=== PATIENT | female | born 1955 | race Caucasian/White ===

== ENCOUNTER → 2021-04-18 | Outpatient (CLI) | payer MEDICARE, BC ==
[~2021-04-18] MED LIST: CLOP75TA15 PO; LEVO100T PO; LOSA25TA96 PO; MULT-1085 PO; ROSU5TAB PO
== END | disposition home or self-care (01) ==
LOC: 64 CT 09:56
PROVIDERS: ATTEND Surgery
DX: Z01.818 Encounter for other preprocedural examination (principal); R91.8 Other nonspecific abnormal finding of lung field; N26.1 Atrophy of kidney (terminal)
CPT/HCPCS: 71250

== ENCOUNTER 2021-04-25 08:26 | Inpatient (IN) | payer MEDICARE, BC ==
[2021-04-20 12:39] LABS: BASOPHILS % (AUTO) 0.5 % (0-1); EOSINOPHILS % (AUTO) 0.6 % (0-6); LYMPHOCYTES # (AUTO) 1.4 X10'3 (1.1-4.8); LYMPHOCYTES % (AUTO) 22.5 % (21-51); MEAN CORPUSCULAR HEMOGLOBIN 27.7 PG (27.0-31.0); MEAN CORPUSCULAR HGB CONC 33.3 g/dL (33.0-36.5); MEAN CORPUSCULAR VOLUME 83.2 FL (78-98); MEAN PLATELET VOLUME 8.1 FL (7.4-10.4); MONOCYTES # (AUTO) 0.4 X10'3 (0-0.9); MONOCYTES % (AUTO) 6.3 % (2-12); NEUTROPHILS # (AUTO) 4.4 X10'3 (1.8-7.7); NEUTROPHILS % (AUTO) 70.1 % (42-75); PRE OP HEMATOCRIT 37.4 % (35.0-45.0); PRE OP HEMOGLOBIN 12.4 g/dL (12.0-16.0); PRE OP PLATELET COUNT 341 X10'3 (140-440); RED BLOOD COUNT 4.49 X10'6 (4.20-5.60); RED CELL DISTRIBUTION WIDTH 14.2 % (11.5-14.5)
[2021-04-20 12:51] LABS: PRE OP INR 1.1 INR; PRE OP PROTIME 10.9 SECONDS (9.0-12.0)
[2021-04-20 13:16] LABS: ALBUMIN 4.2 G/DL (3.4-5.0); ALBUMIN/GLOBULIN RATIO 1.1 (1.1-1.5); ALKALINE PHOSPHATASE 93 IU/L (46-116); BLOOD UREA NITROGEN 20 MG/DL (7-18); BUN/CREATININE RATIO 23.3 (6.6-38.0); CALCIUM 9.5 MG/DL (8.5-10.1); CHLORIDE 104 MMOL/L (99-107); CREATININE 0.86 MG/DL (0.40-0.90); PRE OP ALT 27 U/L (30-65); PRE OP ANION GAP 9 (8-16); PRE OP AST 15 U/L (10-37); PRE OP BILIRUB, TOTAL 0.3 MG/DL (0.0-1.0); PRE OP GLUCOSE 101 MG/DL (70-104); PRE OP POTASSIUM 4.3 MMOL/L (3.4-5.1); PRE OP SODIUM 140 MMOL/L (135-145); TOTAL PROTEIN 7.9 G/DL (6.4-8.2); eGFR 66 ML/MIN
[~2021-04-25] VITALS: Ht 165.1 cm; Wt 97.2 kg
[2021-04-25] VITALS (17 sets, daily range): BP systolic 80–150; BP diastolic 43–82
[~2021-04-25 08:26] MED LIST changes: +clindamycin-Cleocin 900mg/D5W 50 ML IV ONE; +famotidine 20mg tablet PO ONE; +ringers solution, lacted 1,000 ML IV SCH
[2021-04-25] MEDS ORDERED: NORepinephrine 8mg/ 250ml NS 250 ML IV SCH (12:15)
[2021-04-25] MEDS ORDERED: BUPIVAcaine 0.5% inj/PF 30 ML ONE (12:45)
[2021-04-25] MEDS ORDERED: diazepam 5mg tablet PO ONE (12:50)
[2021-04-25] MEDS ORDERED: midazolam 1 mg/ML 2ml injection ONE (13:13)
[2021-04-25] MEDS ORDERED: LIDOcaine 2% (20mg/ml) 5ml vial ONE (13:13)
[2021-04-25] MEDS ORDERED: fentaNYL /PF 50mcg/ml 5ml ampule ONE (13:13)
[2021-04-25] MEDS ORDERED: propofol inj 20 ML IV ONE (13:13)
[2021-04-25] MEDS ORDERED: rocuronium 10mg/ml inj IV ONE (13:15)
[2021-04-25] MEDS ORDERED: CISatracurium **Bolus** 2 mg/ml inj IV ONE (14:24)
[2021-04-25] MEDS ORDERED: INDOCYANINE GREEN 25 MG/10 ML VIAL IV ONE (15:06)
[2021-04-25] MEDS ORDERED: albumin (Human) 5% 250ml 250 ML IV ONE ×2 (15:17→18:10)
[2021-04-25] MEDS ORDERED: BUPIVACAINE liposomal/PF 13.3 MG/ML vial IM ONE ×2 (16:04→16:06)
[2021-04-25] MEDS ORDERED: BUPIVAcaine/PF 2.5mg/ml (0.25%) 10ml vial ONE (16:05)
[2021-04-25] MEDS ORDERED: acetaminophen 1,000mg/100ml IV 100 ML IV ONE (16:42)
[2021-04-25] MEDS ORDERED: ondansetron/PF 4mg/2ml inj IV PRN ×2 (17:10→17:25)
[2021-04-25] MEDS ORDERED: naloxone 0.4 mg/ml inj IV PRN (17:10)
[2021-04-25] MEDS ORDERED: metoclopramide 5 mg/ml inj IV PRN (17:10)
[2021-04-25] MEDS ORDERED: HYDROcodone/acetaminophen 10/325mg tab PO PRN (17:10)
[2021-04-25] MEDS ORDERED: morphine 2 MG/ML inj. syringe IV PRN ×2 (17:10→17:25)
[2021-04-25] MEDS ORDERED: morphine 4 MG/ML inj SYRINge IV PRN ×2 (17:10→17:25)
[2021-04-25] MEDS ORDERED: CADD PCA waste documentation MC PRN (17:10)
[2021-04-25] MEDS ORDERED: albuterol 2.5 MG/3 ML nebule NEB PRN (17:10)
[2021-04-25] MEDS ORDERED: ringers solution, lacted 1,000 ML IV SCH (17:25)
[2021-04-25] MEDS ORDERED: proCHLORperazine 10 MG/2 ml inj IV PRN (17:25)
[2021-04-25 17:29] LABS: ABG BASE EXCESS -5.2 mmol/L (-2.0-2.0); ABG HCO3 20.8 mmol/L (22.0-26.0); ABG OXYGEN SATURATION 98.4 % (94-97); ABG PCO2 (T) 41.3 mmHg (32.0-45.0); ABG PO2 (T) 146.8 mmHg (75.0-100.0); FCOHb 0.3 % (0.0-3.9); FLOW 10 L/min; FMetHb 0.3 % (0.0-1.5); FO2Hb 97.8 % (94-97); PATIENT TEMPERATURE 36.3; TOTAL HEMOGLOBIN 11.1 G/dl (12.0-16.0)
--- NOTE | 2021-04-25 17:35 | NUR ---
Received from OR via HOSPITAL BED, accompanied by Anesthesiologist DR. BUENO and report given by Anesthesiolgist. ARTERIAL LINE BLOOD GAS OBTAINED AND CHEST XRAY. 20G PIV TO LEFT HAND, RIGHT INTRAJUGULAR CENTRAL LINE. VSS. PATIENT DENIES PAIN. URINE CATHETER IN PLACE. CHEST TUBE TO RIGHT SIDE ABDOMEN WITH SANGENOUS DRAINAGE IN TOTAL OF 20 IN CHAMBER. 10L MASK. WILL CONTINUE TO MONITOR.
[2021-04-25] MEDS ORDERED: morphine 4 MG/ML inj SYRINge ONE (17:41)
[2021-04-25] MEDS ORDERED: ketorolac tromethamine 15mg/ml inj. IV ONE (18:10)
--- NOTE | 2021-04-25 18:45 | NUR ---
REPORT GIVEN TO JUNE. PATIENT TO GO TO [id number].
--- NOTE | 2021-04-25 18:45 | NUR ---
PATIENT TAKEN WILL ALL BELONGINGS AND REPORT GIVEN AT BEDSIDE WELL WITH ALTAGRACIA PRIMARY NURSE.
[2021-04-25] MEDS: gabapentin 300mg capsule PO SCH (20:00)
[2021-04-25] MEDS: clindamycin 600mg/D5W 50ml 50 ML IV SCH (22:12)
[2021-04-25] MEDS: potassium Cl 20mEq in D5-NS 1,000 ML IV SCH (22:15)
[2021-04-26] MEDS ORDERED: PEG 400/HYPROMELLOSE/GLYCERIN 15ml bottle EACHEYE PRN (01:10)
[2021-04-26 02:00] VITALS: BP 129/66
[2021-04-26] MEDS: clindamycin 600mg/D5W 50ml 50 ML IV SCH ×4 (03:15→20:47)
[2021-04-26] MEDS: potassium Cl 20mEq in D5-NS 1,000 ML IV SCH ×2 (05:40→20:48)
[2021-04-26 06:00] VITALS: BP 138/69
[2021-04-26 06:04] LABS: BASOPHILS % (AUTO) 0.1 % (0-1); EOSINOPHILS % (AUTO) 0 % (0-6); HEMATOCRIT 30.1 % (35.0-45.0); HEMOGLOBIN 10.2 g/dl (12.0-16.0); LYMPHOCYTES # (AUTO) 0.4 X10'3 (1.1-4.8); LYMPHOCYTES % (AUTO) 3.4 % (21-51); MEAN CORPUSCULAR HEMOGLOBIN 28.1 PG (27.0-31.0); MEAN CORPUSCULAR HGB CONC 33.9 g/dL (33.0-36.5); MEAN CORPUSCULAR VOLUME 82.8 FL (78-98); MEAN PLATELET VOLUME 8.5 FL (7.4-10.4); MONOCYTES # (AUTO) 1.1 X10'3 (0-0.9); MONOCYTES % (AUTO) 8.8 % (2-12); NEUTROPHILS # (AUTO) 10.7 X10'3 (1.8-7.7); NEUTROPHILS % (AUTO) 87.7 % (42-75); PLATELET COUNT 252 X10'3 (140-440); RED BLOOD COUNT 3.63 X10'6 (4.20-5.60); RED CELL DISTRIBUTION WIDTH 14.1 % (11.5-14.5); WHITE BLOOD COUNT 12.2 X10'3 (4.5-11.0)
[2021-04-26 06:41] LABS: ALANINE AMINOTRANSFERASE 20 U/L (12-78); ALBUMIN 3.5 G/DL (3.4-5.0); ALBUMIN/GLOBULIN RATIO 1.2 (1.1-1.5); ALKALINE PHOSPHATASE 61 IU/L (46-116); ANION GAP 11 (8-16); ASPARTATE AMINO TRANSFERASE 13 U/L (10-37); BILIRUBIN,TOTAL 0.4 MG/DL (0.1-1.0); BLOOD UREA NITROGEN 16 MG/DL (7-18); BUN/CREATININE RATIO 15.7 (6.6-38.0); CALCIUM 8.2 MG/DL (8.5-10.1); CHLORIDE 107 MMOL/L (99-107); CREATININE 1.02 MG/DL (0.40-0.90); GLUCOSE 162 MG/DL (70-104); MAGNESIUM 1.8 MG/DL (1.5-2.4); PHOSPHORUS 3.2 MG/DL (2.3-4.5); POTASSIUM 4.2 MMOL/L (3.5-5.1); SODIUM 142 MMOL/L (135-145); TOTAL CARBON DIOXIDE 23.9 MMOL/L (24-32); TOTAL PROTEIN 6.5 G/DL (6.4-8.2); eGFR 54 ML/MIN
[2021-04-26] MEDS: gabapentin 300mg capsule PO SCH ×2 (08:00→20:00)
[2021-04-26] MEDS: multivitamins, therapeutics tablet PO SCH (08:00)
[2021-04-26] MEDS: levoTHYROXINE 100mcg tablet PO SCH (08:00)
[2021-04-26 11:00] VITALS: BP 126/92
[2021-04-26 15:00] VITALS: BP 121/65
[2021-04-26 18:00] VITALS: BP 150/68
[2021-04-26] MEDS: HYDROcodone/acetaminophen 10/325mg tab PO PRN (18:31)
--- NOTE | 2021-04-26 18:43 | NUR ---
Patient in room PCU 3014. I have received report from Kyung ALAN and had the opportunity to ask questions and assume patient care.
[2021-04-26 22:00] VITALS: BP 149/79
[2021-04-27] MEDS: HYDROcodone/acetaminophen 10/325mg tab PO PRN ×2 (00:45→11:35)
[2021-04-27 02:00] VITALS: BP 151/70
[2021-04-27] MEDS: clindamycin 600mg/D5W 50ml 50 ML IV SCH ×4 (02:22→19:43)
[2021-04-27 06:00] VITALS: BP 166/89
--- NOTE | 2021-04-27 06:05 | NUR ---
Patient in room PCU 3014. I have received report from Brisa ALAN and had the opportunity to ask questions and assume patient care.
--- NOTE | 2021-04-27 06:10 | NUR ---
Problems reprioritized. Patient report given, questions answered & plan of care reviewed with Narinder ALAN.
[2021-04-27 06:27] LABS: ALANINE AMINOTRANSFERASE 19 U/L (12-78); ALBUMIN/GLOBULIN RATIO 0.8 (1.1-1.5); ALKALINE PHOSPHATASE 58 IU/L (46-116); ANION GAP 6 (8-16); ASPARTATE AMINO TRANSFERASE 9 U/L (10-37); BILIRUBIN,TOTAL 0.4 MG/DL (0.1-1.0); BLOOD UREA NITROGEN 15 MG/DL (7-18); BUN/CREATININE RATIO 19.2 (6.6-38.0); CALCIUM 7.9 MG/DL (8.5-10.1); CHLORIDE 108 MMOL/L (99-107); CREATININE 0.78 MG/DL (0.40-0.90); GLUCOSE 137 MG/DL (70-104); PHOSPHORUS 2.3 MG/DL (2.3-4.5); POTASSIUM 3.9 MMOL/L (3.5-5.1); SODIUM 140 MMOL/L (135-145); TOTAL CARBON DIOXIDE 25.8 MMOL/L (24-32); TOTAL PROTEIN 6.6 G/DL (6.4-8.2); eGFR 74 ML/MIN
[2021-04-27 06:37] LABS: BASOPHILS % (AUTO) 0.3 % (0-1); EOSINOPHILS % (AUTO) 0.4 % (0-6); HEMATOCRIT 29.6 % (35.0-45.0); HEMOGLOBIN 9.8 g/dl (12.0-16.0); LYMPHOCYTES # (AUTO) 1.2 X10'3 (1.1-4.8); LYMPHOCYTES % (AUTO) 9.4 % (21-51); MEAN CORPUSCULAR HGB CONC 33.2 g/dL (33.0-36.5); MEAN CORPUSCULAR VOLUME 84.2 FL (78-98); MEAN PLATELET VOLUME 8.6 FL (7.4-10.4); MONOCYTES # (AUTO) 1.9 X10'3 (0-0.9); MONOCYTES % (AUTO) 15.2 % (2-12); NEUTROPHILS # (AUTO) 9.3 X10'3 (1.8-7.7); NEUTROPHILS % (AUTO) 74.7 % (42-75); PLATELET COUNT 223 X10'3 (140-440); RED BLOOD COUNT 3.51 X10'6 (4.20-5.60); RED CELL DISTRIBUTION WIDTH 14.9 % (11.5-14.5); WHITE BLOOD COUNT 12.4 X10'3 (4.5-11.0)
[2021-04-27] MEDS: potassium Cl 20mEq in D5-NS 1,000 ML IV SCH ×3 (06:40→22:07)
[2021-04-27] MEDS: levoTHYROXINE 100mcg tablet PO SCH (07:16)
[2021-04-27 07:22] LABS: PLATELET ESTIMATE NORMAL; TOTAL CELLS COUNTED 100
[2021-04-27] MEDS: gabapentin 300mg capsule PO SCH (08:00)
[2021-04-27 11:00] VITALS: BP 146/68
[2021-04-27] MEDS: multivitamins, therapeutics tablet PO SCH (11:42)
[2021-04-27 18:00] VITALS: BP 143/62
--- NOTE | 2021-04-27 18:15 | NUR ---
Problems reprioritized. Patient report given, questions answered & plan of care reviewed with Melinda ALAN.
[2021-04-27] MEDS: acetaminophen 325mg tablet PO PRN (18:26)
[2021-04-27 22:00] VITALS: BP 97/37
[2021-04-28] MEDS: acetaminophen 325mg tablet PO PRN ×4 (01:07→19:57)
[2021-04-28] MEDS: clindamycin 600mg/D5W 50ml 50 ML IV SCH ×4 (01:08→19:56)
[2021-04-28 02:00] VITALS: BP 147/74
[2021-04-28 06:00] VITALS: BP 152/78
[2021-04-28 06:07] LABS: BASOPHILS % (AUTO) 0.3 % (0-1); EOSINOPHILS # (AUTO) 0.2 X10'3 (0-0.9); EOSINOPHILS % (AUTO) 1.8 % (0-6); HEMATOCRIT 29.9 % (35.0-45.0); HEMOGLOBIN 10.1 g/dl (12.0-16.0); LYMPHOCYTES # (AUTO) 1.3 X10'3 (1.1-4.8); LYMPHOCYTES % (AUTO) 12.8 % (21-51); MEAN CORPUSCULAR HEMOGLOBIN 28.3 PG (27.0-31.0); MEAN CORPUSCULAR HGB CONC 33.8 g/dL (33.0-36.5); MEAN CORPUSCULAR VOLUME 83.8 FL (78-98); MEAN PLATELET VOLUME 8.4 FL (7.4-10.4); MONOCYTES # (AUTO) 1.4 X10'3 (0-0.9); MONOCYTES % (AUTO) 13.7 % (2-12); NEUTROPHILS # (AUTO) 7.4 X10'3 (1.8-7.7); NEUTROPHILS % (AUTO) 71.4 % (42-75); PLATELET COUNT 231 X10'3 (140-440); RED BLOOD COUNT 3.57 X10'6 (4.20-5.60); RED CELL DISTRIBUTION WIDTH 14.7 % (11.5-14.5); WHITE BLOOD COUNT 10.4 X10'3 (4.5-11.0)
[2021-04-28 06:42] LABS: ALANINE AMINOTRANSFERASE 21 U/L (12-78); ALBUMIN/GLOBULIN RATIO 0.9 (1.1-1.5); ALKALINE PHOSPHATASE 73 IU/L (46-116); ANION GAP 11 (8-16); ASPARTATE AMINO TRANSFERASE 19 U/L (10-37); BILIRUBIN,TOTAL 0.5 MG/DL (0.1-1.0); BLOOD UREA NITROGEN 12 MG/DL (7-18); BUN/CREATININE RATIO 16.4 (6.6-38.0); CALCIUM 8.2 MG/DL (8.5-10.1); CHLORIDE 106 MMOL/L (99-107); CREATININE 0.73 MG/DL (0.40-0.90); GLUCOSE 117 MG/DL (70-104); MAGNESIUM 2.1 MG/DL (1.5-2.4); PHOSPHORUS 2.8 MG/DL (2.3-4.5); POTASSIUM 4.3 MMOL/L (3.5-5.1); SODIUM 141 MMOL/L (135-145); TOTAL CARBON DIOXIDE 23.7 MMOL/L (24-32); TOTAL PROTEIN 6.3 G/DL (6.4-8.2); eGFR 80 ML/MIN
[2021-04-28] MEDS: levoTHYROXINE 100mcg tablet PO SCH (07:59)
[2021-04-28] MEDS: multivitamins, therapeutics tablet PO SCH (07:59)
--- NOTE | 2021-04-28 08:20 | NUR ---
Floated to [facility] report given to Birgit around 8am.
[2021-04-28] MEDS: potassium Cl 20mEq in D5-NS 1,000 ML IV SCH (12:23)
--- NOTE | 2021-04-28 18:16 | NUR ---
Patient refused blood glucose checked.
[2021-04-29 02:00] VITALS: BP 140/81
[2021-04-29] MEDS: clindamycin 600mg/D5W 50ml 50 ML IV SCH ×3 (02:00→14:00)
[2021-04-29] MEDS: acetaminophen 325mg tablet PO PRN ×2 (03:29→10:00)
[2021-04-29 05:54] LABS: BASOPHILS % (AUTO) 0.5 % (0-1); EOSINOPHILS # (AUTO) 0.2 X10'3 (0-0.9); HEMATOCRIT 30.4 % (35.0-45.0); HEMOGLOBIN 10.4 g/dl (12.0-16.0); LYMPHOCYTES # (AUTO) 1.4 X10'3 (1.1-4.8); LYMPHOCYTES % (AUTO) 18.7 % (21-51); MEAN CORPUSCULAR HEMOGLOBIN 28.4 PG (27.0-31.0); MEAN CORPUSCULAR HGB CONC 34.2 g/dL (33.0-36.5); MEAN CORPUSCULAR VOLUME 83.1 FL (78-98); MEAN PLATELET VOLUME 8.2 FL (7.4-10.4); MONOCYTES # (AUTO) 0.8 X10'3 (0-0.9); MONOCYTES % (AUTO) 11.3 % (2-12); NEUTROPHILS # (AUTO) 4.9 X10'3 (1.8-7.7); NEUTROPHILS % (AUTO) 66.5 % (42-75); PLATELET COUNT 270 X10'3 (140-440); RED BLOOD COUNT 3.66 X10'6 (4.20-5.60); RED CELL DISTRIBUTION WIDTH 14.4 % (11.5-14.5); WHITE BLOOD COUNT 7.4 X10'3 (4.5-11.0)
[2021-04-29 06:37] LABS: ALANINE AMINOTRANSFERASE 54 U/L (12-78); ALBUMIN/GLOBULIN RATIO 0.9 (1.1-1.5); ALKALINE PHOSPHATASE 92 IU/L (46-116); ANION GAP 12 (8-16); ASPARTATE AMINO TRANSFERASE 35 U/L (10-37); BILIRUBIN,TOTAL 0.6 MG/DL (0.1-1.0); BLOOD UREA NITROGEN 13 MG/DL (7-18); BUN/CREATININE RATIO 16.7 (6.6-38.0); CALCIUM 8.6 MG/DL (8.5-10.1); CHLORIDE 107 MMOL/L (99-107); CREATININE 0.78 MG/DL (0.40-0.90); GLUCOSE 115 MG/DL (70-104); MAGNESIUM 2.2 MG/DL (1.5-2.4); PHOSPHORUS 3.6 MG/DL (2.3-4.5); POTASSIUM 3.9 MMOL/L (3.5-5.1); SODIUM 143 MMOL/L (135-145); TOTAL CARBON DIOXIDE 24.4 MMOL/L (24-32); TOTAL PROTEIN 6.2 G/DL (6.4-8.2); eGFR 74 ML/MIN
[2021-04-29] MEDS: levoTHYROXINE 100mcg tablet PO SCH (08:27)
[2021-04-29] MEDS: multivitamins, therapeutics tablet PO SCH (08:27)
[2021-04-29] MEDS ORDERED: multivitamins, therapeutics tablet PO SCH (08:31)
[2021-04-29] MEDS ORDERED: levoTHYROXINE 100mcg tablet PO SCH (08:31)
--- NOTE | 2021-04-29 10:40 | NUR ---
Patient in room PCU 3014. I have received report from WAQAS Grewal and had the opportunity to ask questions and assume patient care.
--- NOTE | 2021-04-29 14:57 | NUR ---
last dose of antibiotic not administered d/t patient discharge. peripheral access DC'd
== END 2021-04-29 16:57 | disposition home or self-care (01) | DRG 165 ==
LOC: PAS IN 08:26 → UNDOADMIN 08:26 → PAS IN 17:09 → PCU 3S 19:00 → PAS IN 19:00
PROVIDERS: ADMIT Surgery; ATTEND Surgery
PROC: 07B74ZZ Excision of Thorax Lymphatic, Percutaneous Endoscopic Approach (ICD-10-PCS; 2021-04-25)
PROC: 8E0W4CZ Robotic Assisted Procedure of Trunk Region, Percutaneous Endoscopic Approach (ICD-10-PCS; 2021-04-25)
PROC: 0W9940Z Drainage of Right Pleural Cavity with Drainage Device, Percutaneous Endoscopic Approach (ICD-10-PCS; 2021-04-25)
PROC: 0BBC4ZZ Excision of Right Upper Lung Lobe, Percutaneous Endoscopic Approach (ICD-10-PCS; principal; 2021-04-25 13:25)
DX: C34.11 Malignant neoplasm of upper lobe, right bronchus or lung (principal); Z87.891 Personal history of nicotine dependence
CPT/HCPCS: 36415; 36600; 71045; 71046; 80053; 82803; 82948; 83735; 84100; 84443; 85007; 85018; 85025; 85610; 85730; 86885; 86900; 86901; 86920; 87081; 88305; 88307; 93005; 93306; 94760; 97116; 97161; 97530; A4618; A6258; A6449; A7000; A7048; C1758; C9250; C9290; G0378; J0131; J1885; J2250; J2270; J2704; J3010; J3480; J3490; J7030; J7040; J7120; P9045; S0020; U0003; U0005

== ENCOUNTER 2022-06-02 10:17 | Outpatient (CLI) | payer MEDICARE, BC ==
[~2022-06-02 10:17] MED LIST changes: -clindamycin-Cleocin 900mg/D5W 50 ML IV ONE; -famotidine 20mg tablet PO ONE; -ringers solution, lacted 1,000 ML IV SCH
[2022-06-02 10:55] LABS: ABG BASE EXCESS -1.7 mmol/L (-2.0-2.0); ABG HCO3 21.3 mmol/L (22.0-26.0); ABG OXYGEN SATURATION 97.5 % (94-97); ABG PCO2 (T) 31.2 mmHg (32.0-45.0); ABG PO2 (T) 102.2 mmHg (75.0-100.0); ALLEN'S TEST POSITIVE; FCOHb 0.3 % (0.0-3.9); FMetHb 0.1 % (0.0-1.5); FO2Hb 97.1 % (94-97)
== END 2022-06-02 23:59 | disposition home or self-care (01) ==
LOC: RT 10:17
PROVIDERS: ATTEND Surgery
DX: C34.11 Malignant neoplasm of upper lobe, right bronchus or lung (principal); Z90.2 Acquired absence of lung [part of]; Z87.891 Personal history of nicotine dependence; Z79.899 Other long term (current) drug therapy
CPT/HCPCS: 36600; 82803; 85018; 94010; 94727; 94729